=== PATIENT | male | born 1970 | race African-American/Black ===

== ENCOUNTER 2017-02-22 14:47 | Observation (INO) | payer OTHER, MEDICARE ==
[2017-02-22 14:53] VITALS: BP 189/99; PULSE 112; RESP 22; TEMP 98.8; O2SAT 94
--- NOTE | 2017-02-22 15:44 | RADRPT ---
EXAM DATE/TIME: 02/22/2017 15:19 [place] COMPARISON: No previous studies available for comparison. INDICATIONS : Short of breath, chest pain. MEDICAL HISTORY : hx of bronchitis and asthma SURGICAL HISTORY : None. ENCOUNTER: Initial ACUITY: 2 days PAIN SCORE: 8/10 LOCATION: Bilateral chest FINDINGS: PA and lateral views of the chest demonstrate the lungs to be symmetrically aerated without evidence of mass, infiltrate or effusion. The cardiomediastinal contours are unremarkable. Osseous structure s are intact. CONCLUSION: 1. No acute cardiopulmonary disease. Rishi Gutierrez MD on February 22, 2017 at 15:38 Board Certified Radiologist. This report was verified electronically.
[2017-02-22 17:11] VITALS: BP 149/93; PULSE 101; RESP 20; O2SAT 96
--- NOTE | 2017-02-22 17:23 | PD ---
HPI Chief Complaint: Respiratory Symptoms Time Seen by Provider: 16:08 Travel History International Travel<30 days: No Contact w/Intl Traveler<30days: No Traveled to known affect area: No History of Present Illness HPI 46-year-old male patient presents emergency department for evaluation of cough 3 days. Patient states he has a lot of chest congestion and feels like he needs to be coughing up something but nothing is coming up. Patient is complaining of chest pain only when coughing. Patient states he does not have chest pain when he is not coughing. Patient is unsure if he is running fevers since he hasn't taken his temperature however he's been sweating a lot and feeling hot. Patient states he does have sore throat. Patient's major medical history is asthma and bronchitis. He takes an inhaler for his asthma. Patient states nothing is helping relieve or exacerbate symptoms of his cough. PFSH Past Medical History Asthma: Yes Social History Alcohol Use: No Tobacco Use: No ("QUIT 4 DAYS AGO") Substance Use: No Allergies-Medications (Allergen,Severity, Reaction): Coded Allergies: No Known Allergies (Unverified , 02/22/17) Reported Meds & Prescriptions Reported Meds & Active Scripts Active No Active Prescriptions or Reported Medications Review of Systems Except as stated in HPI: all other systems reviewed are Neg Physical Exam Narrative GENERAL: Well-nourished, well-developed 46-year-old male patient that appears mildly distressed and uncomfortable in the stretcher. SKIN: Focused skin assessment warm/mildly diaphoretic. HEAD: Normocephalic. Atraumatic. EYES: No scleral icterus. No injection or drainage. NECK: Supple, trachea midline. No JVD or lymphadenopathy. CARDIOVASCULAR: Regular rate and rhythm without murmurs, gallops, or rubs. RESPIRATORY: Breath sounds coarse in the bilateral lower lobes. No accessory muscle use. GASTROINTESTINAL: Abdomen soft, non-tender, nondistended. MUSCULOSKELETAL: No cyanosis, or edema. BACK: Nontender without obvious deformity. No CVA tenderness. Data Data Last Documented VS Vital Signs Date Time Temp Pulse Resp B/P (MAP) Pulse Ox O2 Delivery O2 Flow Rate FiO2 02/22/17 17:11 101 20 149/93 (111) 96 Nasal Cannula 3.00 02/22/17 14:53 98.8 Orders Orders Complete Blood Count With Diff (02/22/17 14:55) Comprehensive Metabolic Panel (02/22/17 14:55) Act Partial Throm Time (Ptt) (02/22/17 14:55) Prothrombin Time / Inr (Pt) (02/22/17 14:55) Magnesium (Mg) (02/22/17 14:55) Ckmb (Isoenzyme) Profile (02/22/17 14:55) Troponin I (02/22/17 14:55) Influenzae A/B Antigen (02/22/17 14:55) Electrocardiogram (02/22/17 14:55) Chest, Pa & Lat (02/22/17 14:55) Sodium Chlor 0.9% 1000 Ml Inj (Ns 1000 M (02/22/17 17:45) Ibuprofen (Motrin) (02/22/17 17:45) CKMB (02/22/17 16:25) CKMB% (02/22/17 16:25) Urinalysis - C+S If Indicated (02/22/17 17:55) Sodium Chlor 0.9% 1000 Ml Inj (Ns 1000 M (02/22/17 18:45) Methylprednisolone So Succ Inj (Solumedr (02/22/17 18:45) Albuterol-Ipratropium Neb (Duoneb Neb) (02/22/17 18:45) Labs Laboratory Tests Test 02/22/17 16:25 02/22/17 17:55 Prothrombin Time 10.0 SEC Prothromb Time International Ratio 1.0 RATIO Activated Partial Thromboplast Time 27.7 SEC Blood Urea Nitrogen 14 MG/DL Creatinine 1.39 MG/DL Random Glucose 117 MG/DL Total Protein 7.5 GM/DL Albumin 3.8 GM/DL Calcium Level 8.7 MG/DL Magnesium Level 2.6 MG/DL Alkaline Phosphatase 82 U/L Aspartate Amino Transf (AST/SGOT) 38 U/L Alanine Aminotransferase (ALT/SGPT) 22 U/L Total Bilirubin 0.4 MG/DL Sodium Level 137 MEQ/L Potassium Level 3.8 MEQ/L Chloride Level 104 MEQ/L Carbon Dioxide Level 25.0 MEQ/L Anion Gap 8 MEQ/L Estimat Glomerular Filtration Rate 67 ML/MIN Total Creatine Kinase 642 U/L Creatine Kinase MB 0.5 NG/ML Creatine Kinase MB % 0.1 % Troponin I LESS THAN 0.02 NG/ML White Blood Count 4.0 TH/MM3 Red Blood Count 4.68 MIL/MM3 Hemoglobin 13.5 GM/DL Hematocrit 40.6 % Mean Corpuscular Volume 86.8 FL Mean Corpuscular Hemoglobin 28.7 PG Mean Corpuscular Hemoglobin Concent 33.1 % Red Cell Distribution Width 15.1 % Platelet Count 126 TH/MM3 Mean Platelet Volume 7.7 FL Neutrophils (%) (Auto) 49.8 % Lymphocytes (%) (Auto) 37.6 % Monocytes (%) (Auto) 12.1 % Eosinophils (%) (Auto) 0.1 % Basophils (%) (Auto) 0.4 % Neutrophils # (Auto) 2.0 TH/MM3 Lymphocytes # (Auto) 1.5 TH/MM3 Monocytes # (Auto) 0.5 TH/MM3 Eosinophils # (Auto) 0.0 TH/MM3 Basophils # (Auto) 0.0 TH/MM3 CBC Comment DIFF FINAL Differential Comment MDM Medical Decision Making Medical Screen Exam Complete: Yes Emergency Medical Condition: Yes Differential Diagnosis Differential diagnoses include but are not limited to viral syndrome, influenza , bronchitis, pneumonia Narrative Course Patient placed on monitor, IV obtained and blood work sent to lab. CBC, CMP, PT /INR, magnesium, troponin, CK-MB ordered and pending. Influenza ordered and pending. Chest x-ray ordered and pending. EKG ordered and interpreted. EKG shows sinus rhythm with heart rate 99. Chest x-ray shows no acute cardiopulmonary disease Influenza is negative. CBC shows decreased platelets at 126, otherwise no acute abnormality CMP shows elevated creatinine at 1.39, GFR 67, glucose 117 Mag 2.[address] Baker is assuming care of this patient please see her documentation for further details and disposition. Scripts No Active Prescriptions or Reported Meds Chata Ramsey Feb 22, 2017 17:23
[2017-02-22 17:39] LABS: GLUCOSE,RANDOM 117 MG/DL (74-106)
[2017-02-22 17:44] LABS: ALBUMIN 3.8 GM/DL (3.4-5.0); AST (GOT) 38 U/L (15-37); BLOOD UREA NITROGEN 14 MG/DL (7-18); CALCIUM 8.7 MG/DL (8.5-10.1); CHLORIDE 104 MEQ/L (98-107); CREATININE 1.39 MG/DL (0.60-1.30); GLOMERULAR FILTRATION RATE 67 ML/MIN (>89); MAGNESIUM 2.6 MG/DL (1.5-2.5); SODIUM (NA) 137 MEQ/L (136-145)
[2017-02-22] MEDS ORDERED: IBUPROFEN 800 MG TAB PO ONE (17:45)
[2017-02-22] MEDS ORDERED: SODIUM CHLOR 0.9% 1000 ML INJ 1,000 ML IV ONE ×4 (17:45→21:00)
[2017-02-22 17:49] LABS: ALKALINE PHOSPHATASE 82 U/L (45-117); ALT (GPT) 22 U/L (12-78); TOTAL BILIRUBIN ADULT 0.4 MG/DL (0.2-1.0); TOTAL PROTEIN 7.5 GM/DL (6.4-8.2); TROPONIN I LESS THAN 0.02 NG/ML (0.02-0.05)
[2017-02-22 18:28] LABS: BASOPHIL % 0.4 % (0.0-2.0); EOSINOPHIL % 0.1 % (0.0-4.0); HEMATOCRIT 40.6 % (39.0-51.0); HEMOGLOBIN 13.5 GM/DL (13.0-17.0); LYMPH % 37.6 % (9.0-44.0); LYMPHOCYTE # 1.5 TH/MM3 (1.0-4.8); MEAN CELL VOLUME 86.8 FL (80.0-100.0); MEAN CORPUSCULAR HEMOGLOBIN 28.7 PG (27.0-34.0); MEAN CORPUSCULAR HGB CONC 33.1 % (32.0-36.0); MEAN PLATELET VOLUME 7.7 FL (7.0-11.0); MONO % 12.1 % (0.0-8.0); MONOCYTE # 0.5 TH/MM3 (0-0.9); NEUT % 49.8 % (16.0-70.0); PLATELET COUNT 126 TH/MM3 (150-450); RED BLOOD COUNT 4.68 MIL/MM3 (4.50-5.90); RED CELL DISTRIBUTION WIDTH 15.1 % (11.6-17.2)
[2017-02-22] MEDS ORDERED: methylPREDNISolone SOD SUCC 125 MG/2 ML VIAL IV PUSH ONE (18:45)
[2017-02-22 18:53] VITALS: BP 137/85; PULSE 99; RESP 20; O2SAT 97
--- NOTE | 2017-02-22 18:53 | PD ---
Physical Exam Narrative I, Dr. Baker, have reviewed the advance practice practitioner's documentation and am in agreement, met with the patient face to face, made the diagnosis, and the medical decision making was done by me. *My assessment and Findings: Asthma exacerbation vs. URI vs. pneumonia vs. influenza 46yo M with PMH of asthma here with c/o sob for 3 days. Said he has been having difficulty breathing and midsternal chest pain with cough. Generalized muscle aches. Pt is wheezing diffusely. Pt is tachycardic and diaphoretic. States he has not been able to eat/drink much for 2 days. Labs reviewed, no leukocytosis. H/H normal. Mild thrombocytopenic at 126. Creatinine mildly elevated at 1.39 with no prior to compare. CPK elevated at 642. Pt said he has been working out a lot this month prior to Troponin negative. CXR negative. Pt given methylprednisolone and duonebs x3. Saturating in the low 90s, feels better with 2 L NC. Pt given NS IVF x2 and ibuprofen. Pt reevaluated at bedside after duonebs x3 and methylprednisolone 125mg IV. Pt still feels horrible. O2 sat 91% on RA. Pt still mildly tachycardic after 2L IVF but has gotten albuterol. Still wheezing bilaterally and tachypneic. Will admit for asthma exacerbation, JENNY and rhabdomyolysis. Will give another NS IVF and albuterol neb. Pt place back on 2 L NC and said it helps. Does not have oxygen at home. Pt is visiting from [facility]. However, he traveled from [place] to [place] about 1 month ago. Came from [place] to here about 8 days ago[address] Discussed with Dr. Gabriel and accepted to her service. Data Data Last Documented VS Vital Signs Date Time Temp Pulse Resp B/P (MAP) Pulse Ox O2 Delivery O2 Flow Rate FiO2 02/22/17 19:11 99 Nasal Cannula 2.00 02/22/17 18:53 99 20 137/85 (102) 02/22/17 14:53 98.8 Orders Orders Complete Blood Count With Diff (02/22/17 14:55) Comprehensive Metabolic Panel (02/22/17 14:55) Act Partial Throm Time (Ptt) (02/22/17 14:55) Prothrombin Time / Inr (Pt) (02/22/17 14:55) Magnesium (Mg) (02/22/17 14:55) Ckmb (Isoenzyme) Profile (02/22/17 14:55) Troponin I (02/22/17 14:55) Influenzae A/B Antigen (02/22/17 14:55) Electrocardiogram (02/22/17 14:55) Chest, Pa & Lat (02/22/17 14:55) Sodium Chlor 0.9% 1000 Ml Inj (Ns 1000 M (02/22/17 17:45) Ibuprofen (Motrin) (02/22/17 17:45) CKMB (02/22/17 16:25) CKMB% (02/22/17 16:25) Urinalysis - C+S If Indicated (02/22/17 17:55) Sodium Chlor 0.9% 1000 Ml Inj (Ns 1000 M (02/22/17 18:45) Methylprednisolone So Succ Inj (Solumedr (02/22/17 18:45) Albuterol-Ipratropium Neb (Duoneb Neb) (02/22/17 18:45) Sodium Chlor 0.9% 1000 Ml Inj (Ns 1000 M (02/22/17 20:45) Albuterol Concentrated Neb (Albuterol Co (02/22/17 20:45) Place In Observation (02/22/17 ) Vital Signs (Adult) Q4H (02/22/17 20:53) Activity Oob With Assistance (02/22/17 20:53) Repair Order Clerk / Telemetry .CONTINUOUS (02/22/17 20:53) Sodium Chloride 0.9% Flush (Ns Flush) (02/22/17 21:00) Sodium Chloride 0.9% Flush (Ns Flush) (02/22/17 21:00) Basic Metabolic Panel (Bmp) (02/23/17 06:00) Complete Blood Count With Diff (02/23/17 06:00) Resp Oxygen Rickie C Titrat 1-4 L (02/22/17 ) Case Management Consult (02/22/17 20:53) Naloxone Inj (Narcan Inj) (02/22/17 21:00) Ipratropium Neb (Atrovent Neb) (02/22/17 22:00) Ipratropium Neb (Atrovent Neb) (02/22/17 21:00) Sodium Chlor 0.9% 1000 Ml Inj (Ns 1000 M (02/22/17 21:00) Admit Order (Ed Use Only) (02/22/17 20:58) Labs Laboratory Tests Test 02/22/17 16:25 02/22/17 17:55 02/22/17 20:20 Prothrombin Time 10.0 SEC Prothromb Time International Ratio 1.0 RATIO Activated Partial Thromboplast Time 27.7 SEC Blood Urea Nitrogen 14 MG/DL Creatinine 1.39 MG/DL Random Glucose 117 MG/DL Total Protein 7.5 GM/DL Albumin 3.8 GM/DL Calcium Level 8.7 MG/DL Magnesium Level 2.6 MG/DL Alkaline Phosphatase 82 U/L Aspartate Amino Transf (AST/SGOT) 38 U/L Alanine Aminotransferase (ALT/SGPT) 22 U/L Total Bilirubin 0.4 MG/DL Sodium Level 137 MEQ/L Potassium Level 3.8 MEQ/L Chloride Level 104 MEQ/L Carbon Dioxide Level 25.0 MEQ/L Anion Gap 8 MEQ/L Estimat Glomerular Filtration Rate 67 ML/MIN Total Creatine Kinase 642 U/L Creatine Kinase MB 0.5 NG/ML Creatine Kinase MB % 0.1 % Troponin I LESS THAN 0.02 NG/ML White Blood Count 4.0 TH/MM3 Red Blood Count 4.68 MIL/MM3 Hemoglobin 13.5 GM/DL Hematocrit 40.6 % Mean Corpuscular Volume 86.8 FL Mean Corpuscular Hemoglobin 28.7 PG Mean Corpuscular Hemoglobin Concent 33.1 % Red Cell Distribution Width 15.1 % Platelet Count 126 TH/MM3 Mean Platelet Volume 7.7 FL Neutrophils (%) (Auto) 49.8 % Lymphocytes (%) (Auto) 37.6 % Monocytes (%) (Auto) 12.1 % Eosinophils (%) (Auto) 0.1 % Basophils (%) (Auto) 0.4 % Neutrophils # (Auto) 2.0 TH/MM3 Lymphocytes # (Auto) 1.5 TH/MM3 Monocytes # (Auto) 0.5 TH/MM3 Eosinophils # (Auto) 0.0 TH/MM3 Basophils # (Auto) 0.0 TH/MM3 CBC Comment DIFF FINAL Differential Comment Urine Color YELLOW Urine Turbidity CLEAR Urine pH 6.0 Urine Specific [place] 1.026 Urine Protein 30 mg/dL Urine Glucose (UA) NEG mg/dL Urine Ketones 40 mg/dL Urine Occult Blood NEG Urine Nitrite NEG Urine Bilirubin NEG Urine Urobilinogen LESS THAN 2.0 MG/DL Urine Leukocyte Esterase NEG Urine RBC 6 /hpf Urine WBC 2 /hpf Urine Squamous Epithelial Cells 1 /hpf Urine Bacteria RARE /hpf Urine Mucus MANY /lpf Microscopic Urinalysis Comment CULT NOT INDICATED MDM Supervised Visit with [facility]: Yes Interpretation(s) EKG: NSR 99bpm. Normal axis. No ST segment elevation or depression. Diagnosis Primary Impression: Asthma exacerbation Qualified Codes: J45.21 - Mild intermittent asthma with (acute) exacerbation Additional Impressions: Rhabdomyolysis Qualified Codes: M62.82 - Rhabdomyolysis JENNY (acute kidney injury) Admitting Information Admitting Physician Requests: Observation Scripts No Active Prescriptions or Reported Meds Aracelis Baker DO Feb 22, 2017 18:53
[2017-02-22] MEDS: RESP: ALBUTEROL 2.5 MG/IPRATROPIUM 0.5 MG NEB (SCH) INH (19:05)
[2017-02-22 19:11] VITALS: O2SAT 99
[2017-02-22] MEDS ORDERED: RESP: ALBUTEROL CONC 2.5 MG/0.5 ML NEB NEB ONE (20:45)
[2017-02-22 20:50] LABS: BACTERIA, URINE RARE /hpf; BILIRUBIN, URINE NEG (NEG); BLOOD, URINE NEG (NEG); GLUCOSE,URINE NEG (NEG); KETONE, URINE 40 mg/dL (NEG); MUCUS URINE MANY /lpf (OCC); NITRITE,URINE NEG (NEG); SQUAMOUS EPITHELIAL CELL URINE 1 /hpf (0-5); URINE COLOR YELLOW (YELLW/STRAW); URINE LEUKOCYTE ESTERASE NEG (NEG)
[2017-02-22] MEDS ORDERED: NALOXONE HCL 0.4 MG/ML AMP IV PUSH PRN (21:00)
[2017-02-22] MEDS ORDERED: SODIUM CHLORIDE 0.9% FLUSH 10 ML FLUSH IV FLUSH PRN (21:00)
[2017-02-22] MEDS: SODIUM CHLORIDE 0.9% FLUSH 10 ML FLUSH IV FLUSH SCH (21:00)
[2017-02-22] MEDS ORDERED: RESP: IPRATROPIUM 0.5 MG/2.5 ML NEB NEB PRN (21:00)
[2017-02-22 21:25] VITALS: PULSE 102; RESP 22; O2SAT 95
[2017-02-22 23:14] VITALS: BP 139/83; PULSE 91; RESP 20; TEMP 98.7; O2SAT 95
[2017-02-22] MEDS: RESP: IPRATROPIUM 0.5 MG/2.5 ML NEB NEB SCH (23:22)
[2017-02-23] VITALS (11 sets, daily range): BP systolic 116–154; BP diastolic 79–94; PULSE 82–118; RESP 17–21; TEMP 97.1–98.9; O2SAT 94–99
[2017-02-23] MEDS: RESP: IPRATROPIUM 0.5 MG/2.5 ML NEB NEB SCH ×2 (03:29→09:06)
[2017-02-23 05:36] LABS: AUTOMATED NEUTROPHIL # 2.7 TH/MM3 (1.8-7.7); BASOPHIL % 0.3 % (0.0-2.0); HEMATOCRIT 41.9 % (39.0-51.0); HEMOGLOBIN 13.9 GM/DL (13.0-17.0); LYMPH % 17.5 % (9.0-44.0); LYMPHOCYTE # 0.6 TH/MM3 (1.0-4.8); MEAN CELL VOLUME 87.9 FL (80.0-100.0); MEAN CORPUSCULAR HEMOGLOBIN 29.3 PG (27.0-34.0); MEAN CORPUSCULAR HGB CONC 33.3 % (32.0-36.0); MEAN PLATELET VOLUME 7.9 FL (7.0-11.0); MONO % 3.7 % (0.0-8.0); MONOCYTE # 0.1 TH/MM3 (0-0.9); NEUT % 78.5 % (16.0-70.0); PLATELET COUNT 127 TH/MM3 (150-450); RED BLOOD COUNT 4.77 MIL/MM3 (4.50-5.90); RED CELL DISTRIBUTION WIDTH 15.2 % (11.6-17.2); WHITE BLOOD COUNT 3.4 TH/MM3 (4.0-11.0)
[2017-02-23 05:44] LABS: BICARBONATE 24.4 MEQ/L (21.0-32.0); CALCIUM 8.5 MG/DL (8.5-10.1); CREATININE 1.07 MG/DL (0.60-1.30)
--- NOTE | 2017-02-23 08:03 | HHI.HP ---
[facility] Service [place] [facility] Primary Care Physician [facility] Admission Diagnosis Asthma exacerbation, dehydration Diagnoses: Chief Complaint: shortness of breath Travel History International Travel<30 Days: No Contact w/Intl Traveler <30 Da: No Traveled to Known Affected Are: No History of Present Illness Written by Luisana Ventura, acting as scribe for Dr. Lancaster on 02/23/17 at 07: 58. 46-year-old male with history of asthma presents with a 4 day history of shortness of breath and cough. The patient reports he came to the ER last night because he couldn't breathe.He reports a productive cough with brown sputum. He reports profuse sweating and chills but no fevers. He also reports diffuse anterior chest pains, worse with coughing and deep inspiration. He has been using an albuterol inhaler "a lot" over the past few days. He does not take any other medications for his asthma. His last asthma flare was 2 months ago. He states he usually gets asthma flares every 4 months. He continues to smoke tobacco however quit 4-5days ago when his symptoms started. He otherwise denies any other medical complaints including no headache, lightheadedness, dizziness, sore throat, abdominal pain, nausea/vomiting, diarrhea, or urinary complaints. His PCP is at the [facility] in [place], [place]. Review of Systems Except as stated in HPI: all other systems reviewed are Neg Past Family Social History Past Medical History asthma Past Surgical History Denies any prior surgeries Reported Medications Albuterol inhaler prn Melatonin prn sleep Excedrin prn Allergies: Coded Allergies: No Known Allergies (Unverified , 02/22/17) Active Ordered Medications Current Medications Medications (Trade) Dose Ordered Sig/Ricardo Route Start Time Stop Time Status Last Admin (NS Flush) 2 ml UNSCH PRN IV FLUSH 02/22/17 21:00 (NS Flush) 2 ml BID IV FLUSH 02/22/17 21:00 (Narcan Inj) 0.4 mg UNSCH PRN IV PUSH 02/22/17 21:00 (Atrovent Neb) 0.5 mg Q6HR NEB NEB 02/22/17 22:00 02/22/17 23:22 (Atrovent Neb) 0.5 mg Q2HR NEB PRN NEB 02/22/17 21:00 Family History Father with diabetes No family history of lung disease Social History Smokes tobacco, less than 1 PPD off/on for 20years, recently quit tobacco use 4- 5days ago Denies any alcohol or illicit drug use Physical Exam Vital Signs Vital Signs Date Time Temp Pulse Resp B/P (MAP) Pulse Ox O2 Delivery O2 Flow Rate FiO2 02/23/17 03:56 97.6 20 116/79 (91) 02/22/17 23:14 98.7 91 20 139/83 (101) 95 Nasal Cannula 3.00 02/22/17 21:25 102 22 95 Nasal Cannula 3.00 02/22/17 19:11 99 Nasal Cannula 2.00 02/22/17 18:53 99 20 137/85 (102) 97 Nasal Cannula 2.00 02/22/17 17:11 101 20 149/93 (111) 96 Nasal Cannula 3.00 02/22/17 14:53 98.8 112 22 189/99 (129) 94 Physical Exam GENERAL: Well-developed, well-nourished middle aged male patient in [facility]. SKIN: Warm and dry. HEAD: Atraumatic. Normocephalic. EYES: Pupils equal and round. No scleral icterus. No injection or drainage. ENT: No nasal bleeding or discharge. Mucous membranes pink and moist. NECK: Trachea midline. CARDIOVASCULAR: Regular rate and rhythm. No murmur appreciated. Chest wall nontender to palpation. RESPIRATORY: No accessory muscle use. Diffuse significant wheezing throughout all lung van. Breath sounds equal bilaterally. GASTROINTESTINAL: Abdomen soft, non-tender, nondistended. Normoactive bowel sounds x4. MUSCULOSKELETAL: Extremities without clubbing, cyanosis, or edema. No obvious deformities. NEUROLOGICAL: Awake and alert. No obvious cranial nerve deficits. Motor grossly within normal limits. Moves all extremities spontaneously. Normal speech. PSYCHIATRIC: Appropriate mood and affect; insight and judgment normal. Laboratory Laboratory Tests Test 02/22/17 16:25 02/22/17 17:55 02/22/17 20:20 02/23/17 04:55 Prothrombin Time 10.0 Prothromb Time International Ratio 1.0 Activated Partial Thromboplast Time 27.7 Blood Urea Nitrogen 14 14 Creatinine 1.39 1.07 Random Glucose 117 202 Total Protein 7.5 Albumin 3.8 Calcium Level 8.7 8.5 Magnesium Level 2.6 Alkaline Phosphatase 82 Aspartate Amino Transf (AST/SGOT) 38 Alanine Aminotransferase (ALT/SGPT) 22 Total Bilirubin 0.4 Sodium Level 137 142 Potassium Level 3.8 4.4 Chloride Level 104 111 Carbon Dioxide Level 25.0 24.4 Anion Gap 8 7 Estimat Glomerular Filtration Rate 67 91 Total Creatine Kinase 642 Creatine Kinase MB 0.5 Creatine Kinase MB % 0.1 Troponin I LESS THAN 0.02 White Blood Count 4.0 3.4 Red Blood Count 4.68 4.77 Hemoglobin 13.5 13.9 Hematocrit 40.6 41.9 Mean Corpuscular Volume 86.8 87.9 Mean Corpuscular Hemoglobin 28.7 29.3 Mean Corpuscular Hemoglobin Concent 33.1 33.3 Red Cell Distribution Width 15.1 15.2 Platelet Count 126 127 Mean Platelet Volume 7.7 7.9 Neutrophils (%) (Auto) 49.8 78.5 Lymphocytes (%) (Auto) 37.6 17.5 Monocytes (%) (Auto) 12.1 3.7 Eosinophils (%) (Auto) 0.1 0.0 Basophils (%) (Auto) 0.4 0.3 Neutrophils # (Auto) 2.0 2.7 Lymphocytes # (Auto) 1.5 0.6 Monocytes # (Auto) 0.5 0.1 Eosinophils # (Auto) 0.0 0.0 Basophils # (Auto) 0.0 0.0 CBC Comment DIFF FINAL DIFF FINAL Differential Comment Urine Color YELLOW Urine Turbidity CLEAR Urine pH 6.0 Urine Specific [place] 1.026 Urine Protein 30 Urine Glucose (UA) NEG Urine Ketones 40 Urine Occult Blood NEG Urine Nitrite NEG Urine Bilirubin NEG Urine Urobilinogen LESS THAN 2.0 Urine Leukocyte Esterase NEG Urine RBC 6 Urine WBC 2 Urine Squamous Epithelial Cells 1 Urine Bacteria RARE Urine Mucus MANY Microscopic Urinalysis Comment CULT NOT INDICATED Date/Time Source Procedure Growth Status 02/22/17 16:25 Nasal Washing Influenza Types A,B Antigen (BOYD) - Final NEGATIVE FOR FLU A AND B ANTIGEN.... Complete Result Diagram: 02/23/17 0455 02/23/17 7038 Imaging Last Impressions Chest X-Ray 02/22/17 2235 Signed Impressions: Service Date/Time: Wednesday, February 22, 2017 15:19 - CONCLUSION: 1. No acute cardiopulmonary disease. MD Santos Mcqueen VTE Risk Assessment Santos VTE Risk Assessment: No/Low Risk (score <= 1) Santos Risk Assessment Model Point Value = 1 Point Value = 2 Point Value = 3 Point Value = 5 Age 41-60 Minor surgery BMI > 25 kg/m2 Swollen legs Varicose veins or History of unexplained or recurrent spontaneous Oral contraceptives or hormone replacement Sepsis (< 1 month) Serious lung disease, including pneumonia (< 1 month) Abnormal pulmonary function Acute myocardial infarction Congestive heart failure (< 1 month) History of inflammatory bowel disease Medical patient at bed rest Age 61-74 Arthroscopic surgery Major open surgery (> 45 min) Laparoscopic surgery (> 45 min) Malignancy Confined to bed (> 72 hours) Immobilizing plaster cast Central venous access Age >= 75 History of VTE Family history of VTE Factor V Leiden Prothrombin [id number] Lupus anticoagulant Anticardiolipin antibodies Elevated serum homocysteine Heparin-induced thrombocytopenia Other congenital or acquired thrombophilia Stroke (< 1 month) Elective arthroplasty Hip, pelvis, or leg fracture Acute spinal cord injury (< 1 month) Prophylaxis Regimen Total Risk Factor Score Risk Level Prophylaxis Regimen 0-1 Low Early ambulation 2 Moderate Order ONE of the following: *Sequential Compression Device (SCD) *Heparin 5000 units SQ BID 3-4 Higher Order ONE of the following medications: *Heparin 5000 units SQ TID *Enoxaparin/Lovenox 40 mg SQ daily (WT < 150 kg, CrCl > 30 mL/min) *Enoxaparin/Lovenox 30 mg SQ daily (WT < 150 kg, CrCl > 10-29 mL/min) *Enoxaparin/Lovenox 30 mg SQ BID (WT < 150 kg, CrCl > 30 mL/min) AND/OR *Sequential Compression Device (SCD) 5 or more Highest Order ONE of the following medications: *Heparin 5000 units SQ TID (Preferred with Epidurals) *Enoxaparin/Lovenox 40 mg SQ daily (WT < 150 kg, CrCl > 30 mL/min) *Enoxaparin/Lovenox 30 mg SQ daily (WT < 150 kg, CrCl > 10-29 mL/min) *Enoxaparin/Lovenox 30 mg SQ BID (WT < 150 kg, CrCl > 30 mL/min) AND *Sequential Compression Device (SCD) Assessment and Plan Problem List: (1) Asthma exacerbation ICD Code: J45.901 - Unspecified asthma with (acute) exacerbation Status: Acute (2) JENNY (acute kidney injury) ICD Code: N17.9 - Acute kidney failure, unspecified Status: Acute Assessment and Plan 46-year-old male with history of asthma presents with a 4 day history of shortness of breath and cough. Acute Asthma Exacerbation: O2 sat 94% upon arrival, significant diffuse wheezing on exam. S/p IV Solumedrol 125mg x1 and nebs in the ER with minimal improvement. -Continue steroids with IV Solumedrol 60mg q6h -Continue bronchodilators with duonebs q4h ricardo and q2h prn -In light of productive cough/sweats/chills, will give Azithromycin 500mg qd x5days -Mucinex bid -Tessalon prn cough -O2 as needed, wean oxygen has breathing improves Atypical Chest Pain: suspect pleuritic secondary to asthma exacerbation and intractable coughing; pain worse with cough and deep inspiration -Rule out ACS, Initial troponin negative, will check 2nd set -EKG reviewed, no acute ischemic changes -Tylenol prn pain -Control cough with mucinex and tessalon prn JENNY: Cr 1.39 upon arrival, no hx of renal insufficiency -S/p 3L IVF in the ED -Repeat BMP shows improvement with Cr 1.07 -Avoid nephrotoxins Mild Rhabdomyolysis: CPK 642 --> 1039 -S/p IVF bolus x3L in ED, will give additional IVF NS at 100cc/hr x1L -repeat labs in am Tobacco Use: smokes less than half PPD over past 20 years, recently quit 4-5 days ago -counseled on continuing cessation DVT Prophylaxis: teds/SCDs the above note was scribed by Ms. Luisana Ventura ( [email or web address]). I attest that I had a [id number] encounter with the patient and personally performed the physical exam and medical decision making and reviewed the findings and plan with the patient. Discussed Condition With Patient, RN Problem Qualifiers (1) Asthma exacerbation: Qualified Codes: J45.21 - Mild intermittent asthma with (acute) exacerbation Luisana Ventura PA-C Feb 23, 2017 08:03 Catherine Lancaster MD Feb 23, 2017 10:16
[2017-02-23] MEDS ORDERED: BENZONATATE 100 MG CAP PO PRN (09:15)
[2017-02-23] MEDS ORDERED: RESP: ALBUTEROL 2.5 MG/IPRATROPIUM 0.5 MG NEB (PRN) NEB (09:15)
[2017-02-23] MEDS: AZITHROMYCIN 250 MG TAB PO SCH (10:47)
[2017-02-23] MEDS: guaiFENesin E.R. 600 MG TAB PO SCH ×2 (10:48→20:38)
[2017-02-23] MEDS: methylPREDNISolone SOD SUCC 40 MG/1 ML VIAL IV PUSH SCH ×3 (10:52→21:48)
[2017-02-23] MEDS: SODIUM CHLORIDE 0.9% FLUSH 10 ML FLUSH IV FLUSH SCH ×2 (10:54→20:40)
[2017-02-23] MEDS ORDERED: SODIUM CHLOR 0.9% 1000 ML INJ 1,000 ML IV SCH (11:30)
[2017-02-23] MEDS ORDERED: methylPREDNISolone SOD SUCC 40 MG/1 ML VIAL IV PUSH SCH (12:00)
[2017-02-23] MEDS: RESP: ALBUTEROL 2.5 MG/IPRATROPIUM 0.5 MG NEB (SCH) NEB ×3 (12:22→21:05)
[2017-02-23] MEDS ORDERED: ACETAMINOPHEN 325 MG TAB PO ONE (22:00)
--- NOTE | 2017-02-23 22:01 | EKG ---
Date Performed: 02/22/2017 Time Performed: 16:47:51 PTAGE: 46 years EKG: Sinus rhythm NONSPECIFIC T-WAVE ABNORMALITY BORDERLINE ECG NO PREVIOUS TRACING DOCTOR: Floridalma Echeverria Interpretating Date/Time 02/23/2017 22:00:11
[2017-02-24] VITALS (8 sets, daily range): BP systolic 118–139; BP diastolic 71–92; PULSE 86–106; RESP 17–20; TEMP 97.7–99; O2SAT 95–97
[2017-02-24] MEDS: SODIUM CHLOR 0.9% 1000 ML INJ 1,000 ML IV SCH ×3 (04:32→21:27)
[2017-02-24] MEDS: methylPREDNISolone SOD SUCC 40 MG/1 ML VIAL IV PUSH SCH ×4 (04:33→21:28)
[2017-02-24] MEDS: RESP: ALBUTEROL 2.5 MG/IPRATROPIUM 0.5 MG NEB (SCH) NEB ×4 (07:57→19:39)
[2017-02-24 08:01] LABS: AUTOMATED NEUTROPHIL # 7.8 TH/MM3 (1.8-7.7); BASOPHIL % 0.1 % (0.0-2.0); HEMATOCRIT 41.2 % (39.0-51.0); HEMOGLOBIN 13.9 GM/DL (13.0-17.0); LYMPH % 10.9 % (9.0-44.0); MEAN CELL VOLUME 86.7 FL (80.0-100.0); MEAN CORPUSCULAR HEMOGLOBIN 29.3 PG (27.0-34.0); MEAN CORPUSCULAR HGB CONC 33.8 % (32.0-36.0); MEAN PLATELET VOLUME 8.5 FL (7.0-11.0); MONO % 5.8 % (0.0-8.0); MONOCYTE # 0.5 TH/MM3 (0-0.9); NEUT % 83.2 % (16.0-70.0); PLATELET COUNT 134 TH/MM3 (150-450); RED BLOOD COUNT 4.75 MIL/MM3 (4.50-5.90); RED CELL DISTRIBUTION WIDTH 15.3 % (11.6-17.2); WHITE BLOOD COUNT 9.3 TH/MM3 (4.0-11.0)
[2017-02-24 08:16] LABS: ALBUMIN 3.3 GM/DL (3.4-5.0); ALT (GPT) 23 U/L (12-78); AST (GOT) 29 U/L (15-37); BICARBONATE 25.3 MEQ/L (21.0-32.0); BLOOD UREA NITROGEN 14 MG/DL (7-18); CALCIUM 8.9 MG/DL (8.5-10.1); CHLORIDE 110 MEQ/L (98-107); CREATININE 0.88 MG/DL (0.60-1.30); GLOMERULAR FILTRATION RATE 114 ML/MIN (>89); GLUCOSE,RANDOM 193 MG/DL (74-106); SODIUM (NA) 143 MEQ/L (136-145)
[2017-02-24 08:18] LABS: ALKALINE PHOSPHATASE 79 U/L (45-117); TOTAL BILIRUBIN ADULT 0.2 MG/DL (0.2-1.0)
[2017-02-24] MEDS: guaiFENesin E.R. 600 MG TAB PO SCH ×2 (08:54→21:00)
[2017-02-24] MEDS: AZITHROMYCIN 250 MG TAB PO SCH (08:56)
[2017-02-24] MEDS: SODIUM CHLORIDE 0.9% FLUSH 10 ML FLUSH IV FLUSH SCH ×2 (08:56→21:27)
--- NOTE | 2017-02-24 10:52 | HHI.PR ---
Subjective Remarks in no acute distress. but still with sob, wheezing and currently on two liters of oxygen via [place] afebrile. Objective Vitals Vital Signs Date Time Temp Pulse Resp B/P (MAP) Pulse Ox O2 Delivery O2 Flow Rate FiO2 02/24/17 08:13 99.0 103 20 134/92 (106) 95 02/24/17 07:58 97 21 02/24/17 04:04 97.7 93 17 118/71 (87) 95 02/24/17 03:00 95 Room Air 02/24/17 00:00 98 Nasal Cannula 2.00 02/23/17 23:37 98.1 84 17 138/93 (108) 99 02/23/17 23:32 20 02/23/17 20:41 Nasal Cannula 3.00 02/23/17 20:22 98.9 92 18 132/88 (103) 96 02/23/17 20:00 97 02/23/17 16:08 82 02/23/17 15:19 93 02/23/17 13:54 98.3 98 20 141/90 (107) 98 02/23/17 13:40 Nasal Cannula 3.00 02/23/17 12:22 94 21 02/23/17 12:11 97.1 85 18 145/94 (111) 94 I/O 02/23/17 02/23/17 02/23/17 02/24/17 02/24/17 02/24/17 07:00 15:00 23:00 07:00 15:00 23:00 Intake Total 320 ml 240 ml Output Total 600 ml 600 ml Balance -280 ml -360 ml Intake Oral 320 ml 240 ml Output Urine Total 600 ml 600 ml # Voids 4 # Bowel Movements 1 0 Result Diagram: 02/24/17 0617 02/24/17 0617 Imaging Last Impressions Chest X-Ray 02/22/17 1053 Signed Impressions: Service Date/Time: Wednesday, February 22, 2017 15:19 - CONCLUSION: 1. No acute cardiopulmonary disease. Rishi Gutierrez MD Objective Remarks GENERAL: This is a well-nourished, well-developed patient, in no apparent distress. CARDIOVASCULAR: tachycardic with regular rhythm without murmurs, gallops, or rubs. RESPIRATORY: bilateral wheezing/ improved to some extent. GASTROINTESTINAL: Abdomen soft, non-tender, nondistended. Normal, active bowel sounds MUSCULOSKELETAL: Extremities without clubbing, cyanosis, or edema. NEURO: Alert & Oriented x4 to person, place, time, situation. Moves all ext x4 Medications and IVs Inpatient Medications Acetaminophen (Tylenol) 650 mg ONCE ONCE PO Last administered on 02/23/17at 21: 49; Start 02/23/17 at 22:00; Stop 02/23/17 at 22:01; Status DC Albuterol Sulfate (Albuterol Concentrated Neb) 2.5 mg ONCE ONCE NEB Last administered on 02/22/17at 21:01; Start 02/22/17 at 20:45; Stop 02/22/17 at 20:46; Status DC Albuterol/ Ipratropium (Duoneb Neb) 1 ampule Q2HR NEB PRN NEB SOB/wheezing; Start 02/23/17 at 09:15 Azithromycin (Zithromax) 500 mg DAILY PO Last administered on 02/24/17at 08:56; Start 02/23/17 at 09:15; Stop 02/28/17 at 09:14 Benzonatate (Tessalon) 100 mg TID PRN PO cough; Start 02/23/17 at 09:15 Guaifenesin (Mucinex Er) 600 mg BID PO Last administered on 02/24/17at 08:54; Start 02/23/17 at 09:15 Ibuprofen (Motrin) 800 mg ONCE ONCE PO Last administered on 02/22/17at 17:54; Start 02/22/17 at 17:45; Stop 02/22/17 at 17:46; Status DC Ipratropium [place] (Atrovent Neb) 0.5 mg Q2HR NEB PRN NEB WHEEZING; Start 02/22 at 21:00; Stop 02/23/17 at 09:06; Status DC Methylprednisolone Sodium Succinate (SoluMEDROL INJ) 60 mg Q6H IV PUSH Last administered on 02/24/17at 10:20; Start 02/23/17 at 10:00 Naloxone HCl (Narcan Inj) 0.4 mg UNSCH PRN IV PUSH SEE LABEL COMMENTS; Start at 21:00 Sodium Chloride 1,000 ml @ 125 mls/hr Q8H IV Last administered on 02/24/17at 04 :32; Start 02/24/17 at 04:00 Sodium Chloride (NS Flush) 2 ml BID IV FLUSH Last administered on 02/23/17at 20: 40; Start 02/22/17 at 21:00 A/P Problem List: (1) Asthma exacerbation ICD Code: J45.901 - Unspecified asthma with (acute) exacerbation Status: Acute (2) JENNY (acute kidney injury) ICD Code: N17.9 - Acute kidney failure, unspecified Status: Acute Assessment and Plan Acute Asthma Exacerbation: O2 sat 94% upon arrival, significant diffuse wheezing on exam. S/p IV Solumedrol 125mg x1 and nebs in the ER with minimal improvement. -Continue steroids with IV Solumedrol 60mg q6h -Continue bronchodilators with duonebs q4h [place] and q2h prn -In light of productive cough/sweats/chills, will give Azithromycin 500mg qd x5days -Mucinex bid -Tessalon prn cough -O2 as needed, wean oxygen has breathing improves Atypical Chest Pain: suspect pleuritic secondary to asthma exacerbation and intractable coughing; pain worse with cough and deep inspiration -serial troponin negative. -EKG reviewed, no acute ischemic changes -Tylenol prn pain -Control cough with mucinex and tessalon prn JENNY: Cr 1.39 upon arrival, improved. -Avoid nephrotoxins Mild Rhabdomyolysis: improved. Tobacco Use: smokes less than half PPD over past 20 years, recently quit 4-5 days ago -counseled on continuing cessation DVT Prophylaxis: teds/SCDs Discharge Planning still with wheezing/ sob and on oxygen via [place]. possible dc home within the next one-two days if continues to improve. Problem Qualifiers (1) Asthma exacerbation: Qualified Codes: J45.21 - Mild intermittent asthma with (acute) exacerbation Catherine Lancaster MD Feb 24, 2017 10:52
[2017-02-24] MEDS ORDERED: ONDANSETRON HCL 4 MG/2 ML VIAL IVP PRN (11:00)
[2017-02-24] MEDS ORDERED: ACETAMINOPHEN 325 MG TAB PO PRN (11:00)
[2017-02-24] MEDS ORDERED: IBUPROFEN 600 MG TAB PO PRN (11:15)
[2017-02-24] MEDS ORDERED: MELATONIN 5 MG TAB PO ONE (23:00)
[2017-02-25 00:44] VITALS: BP 144/89; PULSE 88; RESP 18; TEMP 98.5; O2SAT 95
[2017-02-25 03:46] VITALS: BP 142/94; PULSE 85; RESP 18; TEMP 98.4; O2SAT 95
[2017-02-25] MEDS: SODIUM CHLOR 0.9% 1000 ML INJ 1,000 ML IV SCH ×2 (04:00→04:44)
[2017-02-25] MEDS: methylPREDNISolone SOD SUCC 40 MG/1 ML VIAL IV PUSH SCH ×2 (04:43→09:22)
[2017-02-25 05:35] VITALS: PULSE 64
[2017-02-25 06:56] VITALS: BP 146/93; PULSE 85; RESP 16; TEMP 98.4; O2SAT 94
[2017-02-25] MEDS: RESP: ALBUTEROL 2.5 MG/IPRATROPIUM 0.5 MG NEB (SCH) NEB ×3 (07:22→16:00)
[2017-02-25 07:30] VITALS: O2SAT 98
[2017-02-25 07:32] VITALS: PULSE 79
[2017-02-25] MEDS: AZITHROMYCIN 250 MG TAB PO SCH (09:20)
[2017-02-25] MEDS: guaiFENesin E.R. 600 MG TAB PO SCH (09:20)
[2017-02-25] MEDS: SODIUM CHLORIDE 0.9% FLUSH 10 ML FLUSH IV FLUSH SCH (09:20)
[2017-02-25] MEDS ORDERED: AZIT250T3 PO (10:58)
[2017-02-25] MEDS ORDERED: PRED20 PO (10:58)
[2017-02-25] MEDS ORDERED: guaiFENesin ER PO (10:58)
[2017-02-25] MEDS ORDERED: VENTAER INH (10:58)
--- NOTE | 2017-02-25 11:00 | HHI.DCPOC ---
Discharge Care Plan Diagnosis: (1) Asthma exacerbation Your Health Problems Are: Cough Shortness of Breath Goals to Promote Your Health * To prevent worsening of your condition and complications * To maintain your health at the optimal level Directions to Meet Your Goals Take your medications as prescribed Follow your dietary instruction Follow activity as directed Keep your appointments as scheduled Take your immunizations and boosters as scheduled If your symptoms worsen call your PCP, if no PCP go to Urgent Care Center or Emergency Room Smoking is Dangerous to Your Health. Avoid second hand smoke Call the 24-hour hour crisis hotline for domestic abuse at Luisana Ventura PA-C Feb 25, 2017 11:00 am
[2017-02-25] MEDS ORDERED: FLUTI44I INH (11:08)
--- NOTE | 2017-02-25 11:13 | HHI.PR ---
Subjective Remarks in no acute distress. sob has much improved. has occasional cough. no fever. stable on RA. wants to go home. d/w the RN. Objective Vitals Vital Signs Date Time Temp Pulse Resp B/P (MAP) Pulse Ox O2 Delivery O2 Flow Rate FiO2 02/25/17 07:32 79 02/25/17 07:30 98 21 02/25/17 06:56 98.4 85 16 146/93 (110) 94 02/25/17 05:35 64 02/25/17 03:46 98.4 85 18 142/94 (110) 95 02/25/17 01:17 Nasal Cannula 2.00 21 02/25/17 00:44 98.5 88 18 144/89 (107) 95 02/24/17 20:09 98.4 104 17 139/84 (102) 95 02/24/17 19:40 96 21 02/24/17 15:00 97 02/24/17 12:35 98.1 106 20 126/80 (95) 96 Result Diagram: 02/24/1717 02/24/17 0617 Imaging Last Impressions Chest X-Ray 02/22/17 1455 Signed Impressions: Service Date/Time: Wednesday, February 22, 2017 15:19 - CONCLUSION: 1. No acute cardiopulmonary disease. Rishi Gutierrez MD Objective Remarks GENERAL: This is a well-nourished, well-developed patient, in no apparent distress. CARDIOVASCULAR: tachycardic with regular rhythm without murmurs, gallops, or rubs. RESPIRATORY: mild bilateral wheezing- has much improved. GASTROINTESTINAL: Abdomen soft, non-tender, nondistended. Normal, active bowel sounds MUSCULOSKELETAL: Extremities without clubbing, cyanosis, or edema. NEURO: Alert & Oriented x4 to person, place, time, situation. Moves all ext x4 Medications and IVs Inpatient Medications Acetaminophen (Tylenol) 650 mg Q6H PRN PO headache/fever/pain1-4; Start at 11:00 Albuterol Sulfate (Albuterol Concentrated Neb) 2.5 mg ONCE ONCE NEB Last administered on 02/22/17at 21:01; Start 02/22/17 at 20:45; Stop 02/22/17 at 20:46; Status DC Albuterol/ Ipratropium (Duoneb Neb) 1 ampule Q2HR NEB PRN NEB SOB/wheezing; Start 02/23/17 at 09:15 Azithromycin (Zithromax) 500 mg DAILY PO Last administered on 02/25/17at 09:20; Start 02/23/17 at 09:15; Stop 02/28/17 at 09:14 Benzonatate (Tessalon) 100 mg TID PRN PO cough Last administered on 02/24/17at 21:28; Start 02/23/17 at 09:15 Guaifenesin (Mucinex Er) 600 mg BID PO Last administered on 02/25/17at 09:20; Start 02/23/17 at 09:15 Ibuprofen (Motrin) 600 mg Q6H PRN PO PAIN 5-10; Start 02/24/17 at 11:15 Ipratropium [place] (Atrovent Neb) 0.5 mg Q2HR NEB PRN NEB WHEEZING; Start 02/22 at 21:00; Stop 02/23/17 at 09:06; Status DC Melatonin (Melatonin) 5 mg ONCE ONCE PO Last administered on 02/24/17at 23:08; Start 02/24/17 at 23:00; Stop 02/24/17 at 23:01; Status DC Methylprednisolone Sodium Succinate (SoluMEDROL INJ) 60 mg Q6H IV PUSH Last administered on 02/25/17at 09:22; Start 02/23/17 at 10:00 Naloxone HCl (Narcan Inj) 0.4 mg UNSCH PRN IV PUSH SEE LABEL COMMENTS; Start at 21:00 Ondansetron HCl (Zofran Inj) 4 mg Q6H PRN IVP NAUSEA OR VOMITING; Start at 11:00 Sodium Chloride 1,000 ml @ 125 mls/hr Q8H IV Last administered on 02/25/17at 04 :44; Start 02/24/17 at 04:00 Sodium Chloride (NS Flush) 2 ml BID IV FLUSH Last administered on 02/25/17at 09: 20; Start 02/22/17 at 21:00 A/P Problem List: (1) Asthma exacerbation ICD Code: J45.901 - Unspecified asthma with (acute) exacerbation Status: Acute (2) JENNY (acute kidney injury) ICD Code: N17.9 - Acute kidney failure, unspecified Status: Acute Assessment and Plan Acute Asthma Exacerbation: improved. O2 sat 94% upon arrival, significant diffuse wheezing on exam. S /p IV Solumedrol 125mg x1 and nebs in the ER with minimal improvement. -Continue steroids ; switch to po. -Continue bronchodilators with duonebs q4h [place] and q2h prn -In light of productive cough/sweats/chills, will give Azithromycin 500mg qd x5days -Mucinex bid -Tessalon prn cough -O2 as needed, wean oxygen has breathing improves Atypical Chest Pain: suspect pleuritic secondary to asthma exacerbation and intractable coughing; pain worse with cough and deep inspiration -serial troponin negative. -EKG reviewed, no acute ischemic changes -Tylenol prn pain -Control cough with mucinex and tessalon prn JENNY: Cr 1.39 upon arrival, improved. -Avoid nephrotoxins Mild Rhabdomyolysis: improved. Tobacco Use: smokes less than half PPD over past 20 years, recently quit 4-5 days ago -counseled on continuing cessation DVT Prophylaxis: teds/SCDs Discharge Planning dc home with f/u with pcp. of note, case was d/w the case management; [facility] Problem Qualifiers (1) Asthma exacerbation: Qualified Codes: J45.21 - Mild intermittent asthma with (acute) exacerbation Catherine Lancaster MD Feb 25, 2017 11:13
== END 2017-02-25 16:53 | disposition home or self-care (01) ==
LOC: NEPD 14:47 → NEDA 21:00 → NEDH 02-23 02:24 → NEPFCDU 02-23 13:48
PROVIDERS: ADMIT Internal Medicine; ATTEND Internal Medicine
DX: J45.21 Mild intermittent asthma with (acute) exacerbation (principal); R07.89 Other chest pain; M62.82 Rhabdomyolysis; N17.9 Acute kidney failure, unspecified; E86.0 Dehydration; D69.6 Thrombocytopenia, unspecified; F17.200 Nicotine dependence, unspecified, uncomplicated
CPT/HCPCS: 71046; 80048; 80053; 81001; 82550; 82552; 83735; 84484; 85025; 85610; 85730; 87804; 93005; 94640; 94664; 96361; 96374; 96376; 99285; G0378; J2920; J2930; J7030; J7611; J7644